=== PATIENT | female | born 1990 | race Caucasian/White ===

== ENCOUNTER 2016-06-29 17:54 | Emergency (ER) | payer SELFPAY ==
[2016-06-29 18:06] VITALS: BMI 26.2
[2016-06-29 20:21] VITALS: BP 123/73; PULSE 62; TEMP 98.4
--- NOTE | 2016-06-29 20:41 | EDPRACDOC ---
- General Information Chief Complaint: Wound Stated Complaint: RT FIRST FINGER SWELLING/PAIN Information Source: Patient Mode of Arrival:: Car Home Medications: Home Medications Hydrocodone Bit/Acetaminophen [Hydrocodon-Acetaminophen 5-325] 1 tab PO Q6 PRN # 15 tab 06/28/16 Sulfamethoxazole/Trimethoprim [Bactrim Ds Tablet] 1 tab PO BID #20 tab 06/28/16 Allergies/Adverse Reactions: Allergies Allergy/AdvReac Type Severity Reaction Status Date / Time tramadol Allergy Nausea/Vomi Verified 06/29/16 18:05 ting - History of Present Illness Onset: 5 DAYS HPI: Pt seen here yesterday for I&D of abscess, but redness and swelling has increased. Is compliant with bactrim. Med hx = epilepsy. Location: Reports: Extremity (right index finger) Last Tetanus: Yes Relevent History Of: Reports: None Prior Abscess: Reports: Same Pain: Reports: Severe Quality: Reports: Draining, Painful, Red Associated Signs & Symptoms: Reports: None ED Past Medical History - History Reviewed Yes Nurses notes reviewed and agree except as marked - Patient Medical History Psychological History: Denies: Depression - Social Medical History Smoking Status: Heavy tobacco smoker (5 or more cigarettes/day or daily pipe/ cigar) EDM Review of Systems - Review of Systems ROS Negative Except as Marked: Yes All systems reviewed and were negative except as marked Integumentary: Other (abscess right finger, redness swelling) - Physical Exam Constitutional: No apparent distress, Alert Oriented to: Time, Person, Place Last recorded Vital Signs: Last Vital Signs Temp 98.4 F 06/29/16 20:20 Pulse 62 06/29/16 20:20 Resp 18 06/29/16 20:20 BP 123/73 06/29/16 20:20 Pulse Ox 97 06/29/16 20:20 Oxygen Pulse Oxygen Saturation 97 O2 Device Room Air Oxygen Flow Rate Fraction of Inspired Oxygen ( FIO2) - HEENT Head: Normal Eye Exam: negative: Conjunctival Injection, Scleral Icterus Oropharynx: negative: Drooling TMJ: Normal Nose: No Symptoms Reported Neck: Normal - Respiratory/Cardiovascular Respiratory: Normal - CTA Cardiovascular: Normal - GI Tenderness: Non tender - Musculoskeletal Back: Normal Extremities: Other Musculoskeletal Comment: abscess on right index finger ED Abscess/Mass Exam - Integumentary Skin: Warm Mass: Red, Tender, Warm, Fluctuant, Pus Drainage, Local Cellulitis ED Procedures - Incision and Drainage Informed of risks, benefits and alternatives described.: Yes Informed Consent Signed: Verbal Site: rt index finger Indication: Painful Mass Anesthetic: Lidocaine, without Epi Prep: Betadine Blade Size: 11 Incised Site drained: Reports: Blood, Seroma, Pus Incised site was: Irrigated, Not Packed with Iodoform - Diagnostic Imaging Hand Image interpreted by: Radiologist EXAM: RIGHT FINGER(S) - 2+ VIEW COMPARISON: None. FINDINGS: There is no evidence of fracture or dislocation. There is no evidence of arthropathy or other focal bone abnormality. Focal soft tissue swelling is seen around the middle phalanx with small air bubble consistent with infection. No radiopaque foreign body is noted. IMPRESSION: No fracture or dislocation is noted. No lytic destruction is seen to suggest osteomyelitis. Focal soft tissue swelling seen around middle phalanx with air bubble consistent with infection. Electronically Signed By: Remy Gamble Jr, M.D. On: 06/29/2016 20:55 Decision Time to Discharge: 21:53 - Departure Disposition: Home Condition: Stable Final Diagnosis: Abscess Instructions: MRSA (Methicillin Resistant Staphylococcus Aureus) (ED), Laceration (ED), Abscess (ED) Education/Counseling Given To: Patient Education/Counseling Given Regarding: Diagnosis, Treatment, Prognosis, Follow Up Referrals: Andreas Villanueva MD [Staff Physician] - One Week Additional Instructions: Follow up with primary care. Take previously prescribed antibiotic and pain medication. return to ED for any new or worsening symptoms.
[2016-06-29] MEDS ORDERED: LIDOCAINE 2% 5 ML (PRESERVATIVE FREE) VIAL INF ONE (20:55)
--- NOTE | 2016-06-29 20:58 | DIRPT ---
CLINICAL DATA: Right index finger abscess. EXAM: RIGHT FINGER(S) - 2+ VIEW COMPARISON: None. FINDINGS: There is no evidence of fracture or dislocation. There is no evidence of arthropathy or other focal bone abnormality. Focal soft tissue swelling is seen around the middle phalanx with small air bubble consistent with infection. No radiopaque foreign body is noted. IMPRESSION: No fracture or dislocation is noted. No lytic destruction is seen to suggest osteomyelitis. Focal soft tissue swelling seen around middle phalanx with air bubble consistent with infection. Electronically Signed By: Remy Gamble Jr, M.D. On: 06/29/2016 20:55
[2016-06-29] MEDS ORDERED: HYDROmorphone 1 MG INJECTION IM ONE (21:10)
== END 2016-06-29 22:10 | disposition home or self-care (01) ==
LOC: ED 17:54
DX: L02.91 Cutaneous abscess, unspecified (principal)
CPT/HCPCS: 10060; 73140; 96372; 99283; J1170; J2001